=== PATIENT | male | born 1935 | race Caucasian/White ===

== ENCOUNTER 2023-05-16 11:00 | Inpatient (IN) | payer MEDICARE, OTHER ==
[2023-05-16] MEDS ORDERED: Sodium Chloride 0.9% 10 ML Syringe FLUSH PRN (11:01)
[2023-05-16] MEDS ORDERED: Albuterol 0.083% 2.5 MG/3 ML Neb Soln NEB ONE (11:03)
[2023-05-16 11:21] LABS: BASOPHILS PERCENT AUTO 0.3 % (0.0-1.0); HEMATOCRIT 46.8 % (40.0-54.0); HEMOGLOBIN 15.8 g/dL (14.0-18.0); LYMPHOCYTES PERCENT AUTO 17.3 % (20.5-50.1); MEAN CORPUSCULAR HEMOGLOBIN 33.6 pg (27.0-34.0); MEAN CORPUSCULAR HGB CONC 33.8 g/dL (33.0-35.0); MEAN CORPUSCULAR VOLUME 99.6 fL (80-100); MONOCYTES PERCENT AUTO 17.5 % (2-8); NEUTROPHILS PERCENT AUTO 64.9 % (42.2-75.2); PLATELET COUNT,PLT 151 10^3/uL (150-450); WHITE BLOOD CELL COUNT,WBC 9.6 10^3/uL (5.0-10.0)
[2023-05-16] MEDS ORDERED: Sodium Chloride 0.9% 500 ML IV ONE (11:23)
[2023-05-16 11:39] LABS: APPEARANCE,URINE CLEAR (CLEAR); BILIRUBIN,URINE NEGATIVE (NEGATIVE); COLOR,URINE YELLOW (YELLOW); GLUCOSE,URINE NEGATIVE (NEGATIVE); KETONES,URINE NEGATIVE (NEGATIVE); LEUKOCYTE ESTERASE,URINE NEGATIVE (NEGATIVE); NITRITE,URINE NEGATIVE (NEGATIVE); OCCULT BLOOD,URINE TRACE-INTACT (NEGATIVE); PH,URINE 7.5 (5.0-9.0); PROTEIN,URINE NEGATIVE (NEGATIVE); UROBILINOGEN,URINE 0.2 mg/dL (0.2-1.0)
[2023-05-16 11:41] LABS: A/G RATIO 0.8; ALBUMIN 3.3 g/dL (3.4-5.0); ANION GAP 11.2 mEq/L (7-13); BILIRUBIN TOTAL 0.6 mg/dL (0.2-1.0); BUN/CREATININE RATIO 14.1 (No establ ref range); C-REACTIVE PROTEIN 3.89 ng/dL (<=0.30); CALCIUM 8.3 mg/dL (8.5-10.1); CREATININE 1.28 mg/dL (0.70-1.30); EST CRCL DRUG DOSING (CG) 44.63 mL/min; MAGNESIUM 1.9 mg/dL (1.8-2.4); POTASSIUM,K 4.2 mmol/L (3.5-5.1); PROTEIN TOTAL,TP 7.4 g/dL (6.4-8.2)
[2023-05-16 11:44] LABS: LACTIC ACID 1.3 mmol/L (0.4-2.0)
[2023-05-16 11:51] LABS: BACTERIA,URINE OCCASIONAL /HPF (0-FEW/HPF); EPITHELIAL CELLS,URINE FEW /HPF (NOT SEEN); WBC,URINE NOT SEEN /HPF (0-5/HPF)
[2023-05-16 12:14] LABS: INFLUENZA A NAA NEGATIVE (NEGATIVE); INFLUENZA B NAA NEGATIVE (NEGATIVE)
[2023-05-16 12:32] LABS: CORONAVIRUS COVID-19 NAA POSITIVE (NEGATIVE)
[2023-05-16] MEDS ORDERED: Ondansetron 4 MG Tab.DIS PO PRN (13:22)
[2023-05-16] MEDS ORDERED: Bisacodyl 5 MG Tab PO PRN (13:22)
[2023-05-16] MEDS ORDERED: Acetaminophen 325 MG Tab PO PRN (13:22)
[2023-05-16] MEDS ORDERED: Docusate Sodium 100 MG Cap PO PRN (13:22)
[2023-05-16] MEDS ORDERED: Pneumococcal Polyvalent-23 Vaccine 0.5 ML SDV IM ONE (14:44)
[2023-05-16] MEDS ORDERED: Pneumococcal 20-Valent Conjug 0.5 ML Syringe IM ONE (15:45)
[2023-05-17 06:36] LABS: HEMATOCRIT 42.1 % (40.0-54.0); HEMOGLOBIN 14.2 g/dL (14.0-18.0); MEAN CORPUSCULAR HEMOGLOBIN 33.8 pg (27.0-34.0); MEAN CORPUSCULAR HGB CONC 33.7 g/dL (33.0-35.0); MEAN CORPUSCULAR VOLUME 100.2 fL (80-100); PLATELET COUNT,PLT 130 10^3/uL (150-450); WHITE BLOOD CELL COUNT,WBC 7.5 10^3/uL (5.0-10.0)
[2023-05-17 06:40] LABS: BASOPHILS PERCENT AUTO 0.3 % (0.0-1.0); EOSINOPHILS PERCENT AUTO 0.1 % (1.0-3.0); LYMPHOCYTES PERCENT AUTO 24.1 % (20.5-50.1); MONOCYTES PERCENT AUTO 20.4 % (2-8); NEUTROPHILS PERCENT AUTO 55.1 % (42.2-75.2)
[2023-05-17 06:50] LABS: ANION GAP 13.2 mEq/L (7-13); CALCIUM 7.7 mg/dL (8.5-10.1); CREATININE 1.16 mg/dL (0.70-1.30); EOSINOPHILS PERCENT MAN 1 % (1-3); EST CRCL DRUG DOSING (CG) 50.7 mL/min; LYMPHOCYTES PERCENT MAN 19 % (20-50); MONOCYTES PERCENT MAN 16 % (2-8); POTASSIUM,K 4.2 mmol/L (3.5-5.1); SEG NEUTROPHILS PERCENT MAN 64 % (42-75)
[2023-05-17] MEDS ORDERED: [UNRECOGNIZED DRUG - REMARK] IM SCH (09:00)
[2023-05-17] MEDS ORDERED: Enoxaparin 40 MG/0.4 ML Syringe SUBCUT SCH (09:00)
[2023-05-17] MEDS: Rivaroxaban 10 MG Tab PO SCH (17:31)
[2023-05-18] MEDS ORDERED: Nystatin Topical Powder 30 GM Bottle TOP PRN (14:18)
[2023-05-18] MEDS: Rivaroxaban 10 MG Tab PO SCH (17:28)
[2023-05-19] MEDS ORDERED: Loperamide 2 MG Cap PO PRN (17:47)
[2023-05-19] MEDS: Rivaroxaban 10 MG Tab PO SCH (18:17)
[2023-05-19] MEDS ORDERED: amLODIPine 5 MG Tab PO SCH (22:00)
[2023-05-20 07:01] LABS: ANION GAP 9.6 mEq/L (7-13); CALCIUM 8.1 mg/dL (8.5-10.1); CREATININE 0.99 mg/dL (0.70-1.30); EST CRCL DRUG DOSING (CG) 59.41 mL/min; POTASSIUM,K 3.6 mmol/L (3.5-5.1)
[2023-05-20 07:07] LABS: BASOPHILS PERCENT AUTO 0.5 % (0.0-1.0); EOSINOPHILS PERCENT AUTO 1.6 % (1.0-3.0); HEMOGLOBIN 15.7 g/dL (14.0-18.0); LYMPHOCYTES PERCENT AUTO 39.5 % (20.5-50.1); MEAN CORPUSCULAR HEMOGLOBIN 33.4 pg (27.0-34.0); MEAN CORPUSCULAR HGB CONC 33.4 g/dL (33.0-35.0); MONOCYTES PERCENT AUTO 13.2 % (2-8); NEUTROPHILS PERCENT AUTO 45.2 % (42.2-75.2); PLATELET COUNT,PLT 131 10^3/uL (150-450); WHITE BLOOD CELL COUNT,WBC 6.2 10^3/uL (5.0-10.0)
[2023-05-20] MEDS ORDERED: Potassium Chloride 10 MEQ Tab.ER PO ONE (08:23)
[2023-05-20] MEDS: Rivaroxaban 10 MG Tab PO SCH (18:00)
== END 2023-05-21 10:02 | DRG 178 ==
LOC: DL.ED 11:00 → DL.MS 12:48 → DL.ED 12:54 → DL.MS 13:12 → UNDOADMIN 13:12
PROVIDERS: ADMIT Internal Medicine; ATTEND Internal Medicine
DX: U07.1 COVID-19 (principal); E86.0 Dehydration; I48.19 Other persistent atrial fibrillation; N18.30 Chronic kidney disease, stage 3 unspecified; D75.89 Other specified diseases of blood and blood-forming organs; N18.9 Chronic kidney disease, unspecified; F03.90 Unspecified dementia, unspecified severity, without behavioral disturbance, psychotic disturbance, mood disturbance, and anxiety; Z79.01 Long term (current) use of anticoagulants; Z79.899 Other long term (current) drug therapy
CPT/HCPCS: 0240U; 36415; 70450; 71045; 80048; 80053; 81001; 82140; 82607; 82947; 83605; 83735; 83880; 85025; 86140; 87040; 94640; 97116; 97161; 97165; 97530; 99223; 99232; 99238; 99284; 99285; A9270-GY; C1758; J3490; J7040; J7613-GY

== ENCOUNTER 2023-05-21 09:23 | Inpatient (IN) | payer MEDICARE, OTHER ==
[2023-05-21] MEDS ORDERED: Nystatin Topical Powder 30 GM Bottle TOP PRN (09:30)
[2023-05-21] MEDS ORDERED: Sodium Chloride 0.9% 10 ML Syringe FLUSH PRN ×2 (09:30)
[2023-05-21] MEDS ORDERED: Bisacodyl 5 MG Tab PO PRN (09:30)
[2023-05-21] MEDS ORDERED: Ondansetron 4 MG Tab.DIS PO PRN (09:30)
[2023-05-21] MEDS ORDERED: Docusate Sodium 100 MG Cap PO PRN (09:30)
[2023-05-21] MEDS ORDERED: Loperamide 2 MG Cap PO PRN (09:30)
[2023-05-21] MEDS: Rivaroxaban 10 MG Tab PO SCH (17:53)
[2023-05-21] MEDS: Acetaminophen 325 MG Tab PO PRN (20:55)
[2023-05-21] MEDS: Sodium Chloride 0.9% 10 ML Syringe FLUSH SCH (23:39)
[2023-05-22 06:47] LABS: HEMOGLOBIN 14.7 g/dL (14.0-18.0); MEAN CORPUSCULAR HGB CONC 33.4 g/dL (33.0-35.0); MEAN CORPUSCULAR VOLUME 98.7 fL (80-100); PLATELET COUNT,PLT 145 10^3/uL (150-450); RED BLOOD CELL COUNT 4.46 10^6/uL (4.6-6.2); WHITE BLOOD CELL COUNT,WBC 6.3 10^3/uL (5.0-10.0)
[2023-05-22 06:58] LABS: ANION GAP 13.9 mEq/L (7-13); BASOPHILS PERCENT AUTO 0.3 % (0.0-1.0); CALCIUM 8.4 mg/dL (8.5-10.1); CREATININE 0.98 mg/dL (0.70-1.30); EOSINOPHILS PERCENT AUTO 1.9 % (1.0-3.0); EST CRCL DRUG DOSING (CG) 60.02 mL/min; LYMPHOCYTES PERCENT AUTO 36.8 % (20.5-50.1); MONOCYTES PERCENT AUTO 11.5 % (2-8); NEUTROPHILS PERCENT AUTO 49.5 % (42.2-75.2); POTASSIUM,K 3.9 mmol/L (3.5-5.1)
[2023-05-22 07:17] LABS: BAND PERCENT MAN 4 %; EOSINOPHILS PERCENT MAN 2 % (1-3); LYMPHOCYTES PERCENT MAN 34 % (20-50); MONOCYTES PERCENT MAN 10 % (2-8); SEG NEUTROPHILS PERCENT MAN 50 % (42-75)
[2023-05-22] MEDS: Sodium Chloride 0.9% 10 ML Syringe FLUSH SCH ×2 (08:38→23:31)
[2023-05-22] MEDS: Rivaroxaban 10 MG Tab PO SCH (21:16)
[2023-05-22] MEDS: Acetaminophen 325 MG Tab PO PRN (21:16)
[2023-05-23] MEDS: Sodium Chloride 0.9% 10 ML Syringe FLUSH SCH ×3 (09:28→23:19)
[2023-05-23] MEDS: Rivaroxaban 10 MG Tab PO SCH (17:43)
[2023-05-24] MEDS: Sodium Chloride 0.9% 10 ML Syringe FLUSH SCH (08:51)
[2023-05-24] MEDS: Rivaroxaban 10 MG Tab PO SCH (17:03)
[2023-05-25] MEDS: Rivaroxaban 10 MG Tab PO SCH (17:44)
[2023-05-26] MEDS ORDERED: FLU (Fluad Quad) 2023-24(65UP)/MF59C/PF 60 MCG/0.5 ML Syringe IM ONE (09:15)
[2023-05-26] MEDS ORDERED: Furosemide 40 MG Tab PO ONE (11:35)
[2023-05-26] MEDS: Rivaroxaban 10 MG Tab PO SCH (17:23)
== END 2023-05-27 10:20 | disposition home or self-care (01) | DRG 948 ==
LOC: DL.MS 09:32
PROVIDERS: ADMIT Internal Medicine; ATTEND Internal Medicine
DX: R53.1 Weakness (principal); I48.19 Other persistent atrial fibrillation; R53.81 Other malaise; U09.9 Post COVID-19 condition, unspecified; I12.9 Hypertensive chronic kidney disease with stage 1 through stage 4 chronic kidney disease, or unspecified chronic kidney disease; N18.30 Chronic kidney disease, stage 3 unspecified; F03.90 Unspecified dementia, unspecified severity, without behavioral disturbance, psychotic disturbance, mood disturbance, and anxiety; D75.89 Other specified diseases of blood and blood-forming organs; R60.0 Localized edema; Z79.01 Long term (current) use of anticoagulants
CPT/HCPCS: 36415; 80048; 85025; 97116-GP; 97161-GP; 97165-GO; 97530-GO; 97530-GP; 97535-GO; 99306; 99309; 99315; A9270-GY

== ENCOUNTER 2024-11-08 08:27 | Inpatient (IN) | payer MEDICARE, OTHER ==
[2024-11-08 09:08] LABS: BASOPHILS PERCENT AUTO 0.1 % (0.0-1.0); EOSINOPHILS PERCENT AUTO 0.1 % (1.0-3.0); HEMATOCRIT 48.9 % (40.0-54.0); HEMOGLOBIN 16.1 g/dL (14.0-18.0); LYMPHOCYTES PERCENT AUTO 9.1 % (20.5-50.1); MEAN CORPUSCULAR HGB CONC 32.9 g/dL (33.0-35.0); MEAN CORPUSCULAR VOLUME 100.2 fL (80-100); MONOCYTES PERCENT AUTO 4.6 % (2-8); NEUTROPHILS PERCENT AUTO 86.1 % (42.2-75.2); PLATELET COUNT,PLT 179 10^3/uL (150-450); RED BLOOD CELL COUNT 4.88 10^6/uL (4.6-6.2); WHITE BLOOD CELL COUNT,WBC 12.5 10^3/uL (5.0-10.0)
[2024-11-08 09:28] LABS: ALANINE AMINOTRANSFERASE,ALT 19 U/L (16-63); ALBUMIN 3.3 g/dL (3.4-5.0); ALKALINE PHOSPHATASE 112 U/L (46-116); ANION GAP 13.2 mEq/L (7-13); ASPARTATE AMNIOTRANSFERASE,AST 23 U/L (15-37); BILIRUBIN TOTAL 0.7 mg/dL (0.2-1.0); BLOOD UREA NITROGEN,BUN 28 mg/dL (7-18); BUN/CREATININE RATIO 17.2 (No establ ref range); C-REACTIVE PROTEIN 1.93 ng/dL (<=0.50); CALCIUM 8.8 mg/dL (8.5-10.1); CARBON DIOXIDE,CO2 26 mmol/L (21-32); CHLORIDE,CL 105 mmol/L (98-107); CREATININE 1.63 mg/dL (0.70-1.30); GLUCOSE RANDOM 141 mg/dL (70-99); MAGNESIUM 1.9 mg/dL (1.8-2.4); POTASSIUM,K 4.2 mmol/L (3.5-5.1); PROTEIN TOTAL,TP 7.6 g/dL (6.4-8.2); SODIUM,NA 140 mmol/L (136-145)
[2024-11-08 09:29] LABS: A/G RATIO 0.77; ESTIMATED GFR 40 mL/min (>=60)
[2024-11-08] MEDS: Sodium Chloride 0.9% 1,000 ML IV ONE (09:31)
[2024-11-08] MEDS: Ondansetron 4 MG/2 ML SDV IVPUSH ONE (09:31)
[2024-11-08 09:34] LABS: LACTIC ACID 4.3 mmol/L (0.4-2.0)
[2024-11-08] MEDS ORDERED: Acetaminophen 325 MG Tab PO PRN (12:47)
[2024-11-08] MEDS ORDERED: Albuterol/Ipratropium 3.0-0.5 MG/3 ML Neb Soln NEB PRN (12:47)
[2024-11-08] MEDS ORDERED: Ondansetron 4 MG/2 ML SDV IVPUSH PRN (12:47)
[2024-11-08 13:58] LABS: INR 1.1 (0.9-1.2); PROTHROMBIN TIME 11.3 SEC (9.0-12.0); PTT,PARTIAL THROMBOPLSTIN TIME 25.3 SEC (22.0-34.0)
[2024-11-08 14:04] LABS: FOLIC ACID 19.7 ng/mL (8.6-58.9)
[2024-11-08] MEDS: Sodium Chloride 0.9% 1,000 ML IV SCH (15:59)
[2024-11-08] MEDS: Rivaroxaban 10 MG Tab PO SCH (19:36)
[2024-11-09 03:33] LABS: APPEARANCE,URINE CLEAR (CLEAR); BILIRUBIN,URINE NEGATIVE (NEGATIVE); COLOR,URINE DARK YELLOW (YELLOW); GLUCOSE,URINE NEGATIVE (NEGATIVE); KETONES,URINE NEGATIVE (NEGATIVE); LEUKOCYTE ESTERASE,URINE NEGATIVE (NEGATIVE); NITRITE,URINE NEGATIVE (NEGATIVE); OCCULT BLOOD,URINE NEGATIVE (NEGATIVE); PH,URINE 5.5 (5.0-9.0); PROTEIN,URINE NEGATIVE (NEGATIVE); UROBILINOGEN,URINE 0.2 mg/dL (0.2-1.0)
[2024-11-09] MEDS: Pantoprazole 40 MG Tab.CR PO SCH (05:14)
[2024-11-09 06:13] LABS: BASOPHILS PERCENT AUTO 0.1 % (0.0-1.0); EOSINOPHILS PERCENT AUTO 0.6 % (1.0-3.0); HEMATOCRIT 43.6 % (40.0-54.0); HEMOGLOBIN 14.1 g/dL (14.0-18.0); MEAN CORPUSCULAR HEMOGLOBIN 33.1 pg (27.0-34.0); MEAN CORPUSCULAR HGB CONC 32.3 g/dL (33.0-35.0); MEAN CORPUSCULAR VOLUME 102.3 fL (80-100); MONOCYTES PERCENT AUTO 15.3 % (2-8); PLATELET COUNT,PLT 165 10^3/uL (150-450); RED BLOOD CELL COUNT 4.26 10^6/uL (4.6-6.2); WHITE BLOOD CELL COUNT,WBC 7.2 10^3/uL (5.0-10.0)
[2024-11-09 06:39] LABS: ALBUMIN 2.7 g/dL (3.4-5.0); ANION GAP 9.1 mEq/L (7-13); BILIRUBIN TOTAL 0.4 mg/dL (0.2-1.0); BUN/CREATININE RATIO 22.7 (No establ ref range); CALCIUM 7.9 mg/dL (8.5-10.1); CREATININE 1.19 mg/dL (0.70-1.30); EST CRCL DRUG DOSING (CG) 48.49 mL/min; MAGNESIUM 1.9 mg/dL (1.8-2.4); POTASSIUM,K 4.1 mmol/L (3.5-5.1); PROTEIN TOTAL,TP 6.2 g/dL (6.4-8.2)
[2024-11-09 06:43] LABS: A/G RATIO 0.77
[2024-11-09] MEDS: D5 1/2 NS w/ 20 mEq/L KCl 1,000 ML IV SCH (15:21)
[2024-11-10 06:28] LABS: BASOPHILS PERCENT AUTO 0.1 % (0.0-1.0); EOSINOPHILS PERCENT AUTO 4.2 % (1.0-3.0); HEMATOCRIT 40.3 % (40.0-54.0); MEAN CORPUSCULAR HEMOGLOBIN 33.4 pg (27.0-34.0); MEAN CORPUSCULAR HGB CONC 32.3 g/dL (33.0-35.0); MEAN CORPUSCULAR VOLUME 103.6 fL (80-100); MONOCYTES PERCENT AUTO 14.2 % (2-8); NEUTROPHILS PERCENT AUTO 46.5 % (42.2-75.2); PLATELET COUNT,PLT 145 10^3/uL (150-450); RED BLOOD CELL COUNT 3.89 10^6/uL (4.6-6.2); WHITE BLOOD CELL COUNT,WBC 7.2 10^3/uL (5.0-10.0)
[2024-11-10 06:52] LABS: LACTIC ACID 1.2 mmol/L (0.4-2.0)
[2024-11-10 06:59] LABS: A/G RATIO 0.72; ALBUMIN 2.3 g/dL (3.4-5.0); ANION GAP 10.2 mEq/L (7-13); BILIRUBIN TOTAL 0.3 mg/dL (0.2-1.0); BUN/CREATININE RATIO 17.9 (No establ ref range); CALCIUM 7.4 mg/dL (8.5-10.1); CREATININE 1.12 mg/dL (0.70-1.30); EST CRCL DRUG DOSING (CG) 51.52 mL/min; MAGNESIUM 1.8 mg/dL (1.8-2.4); POTASSIUM,K 4.2 mmol/L (3.5-5.1); PROTEIN TOTAL,TP 5.5 g/dL (6.4-8.2)
[2024-11-10 11:06] LABS: PERCENT FE SATURATION 30.6 % (20.0-50.0)
[2024-11-10 11:33] LABS: FOLIC ACID 17.1 ng/mL (8.6-58.9)
[2024-11-10] MEDS: VANCOmycin 125 MG Cap PO SCH (12:54)
[2024-11-10] MEDS: Nystatin Topical Powder 60 GM Bottle TOP SCH (12:54)
[2024-11-10] MEDS: Rivaroxaban 10 MG Tab PO SCH (17:09)
[2024-11-10] MEDS: Melatonin 3 MG Tab PO PRN (20:40)
[2024-11-10] MEDS: Sodium Chloride 0.9% 10 ML Syringe FLUSH PRN (20:42)
[2024-11-11 06:26] LABS: BASOPHILS PERCENT AUTO 0.1 % (0.0-1.0); EOSINOPHILS PERCENT AUTO 1.2 % (1.0-3.0); HEMATOCRIT 44.2 % (40.0-54.0); LYMPHOCYTES PERCENT AUTO 23.3 % (20.5-50.1); MEAN CORPUSCULAR HEMOGLOBIN 33.8 pg (27.0-34.0); MEAN CORPUSCULAR HGB CONC 33.9 g/dL (33.0-35.0); MEAN CORPUSCULAR VOLUME 99.5 fL (80-100); MONOCYTES PERCENT AUTO 12.6 % (2-8); NEUTROPHILS PERCENT AUTO 62.8 % (42.2-75.2); PLATELET COUNT,PLT 168 10^3/uL (150-450); RED BLOOD CELL COUNT 4.44 10^6/uL (4.6-6.2); WHITE BLOOD CELL COUNT,WBC 7.6 10^3/uL (5.0-10.0)
[2024-11-11 06:49] LABS: ALBUMIN 2.9 g/dL (3.4-5.0); ANION GAP 16.4 mEq/L (7-13); BILIRUBIN TOTAL 0.7 mg/dL (0.2-1.0); BUN/CREATININE RATIO 12.8 (No establ ref range); CALCIUM 8.2 mg/dL (8.5-10.1); CREATININE 1.25 mg/dL (0.70-1.30); EST CRCL DRUG DOSING (CG) 46.16 mL/min; MAGNESIUM 1.7 mg/dL (1.8-2.4); POTASSIUM,K 3.4 mmol/L (3.5-5.1); PROTEIN TOTAL,TP 6.8 g/dL (6.4-8.2)
[2024-11-11 06:52] LABS: A/G RATIO 0.74
[2024-11-11] MEDS: Potassium Chloride 20 MEQ in Premix Bag 1 BAG IV ONE (10:31)
[2024-11-11] MEDS: Nystatin Topical Powder 60 GM Bottle TOP SCH (13:09)
== END 2024-11-11 18:11 | disposition home or self-care (01) | DRG 871 ==
LOC: DL.ED 08:27 → DL.MS 09:37
PROVIDERS: ADMIT Internal Medicine; ATTEND Internal Medicine
DX: A41.89 Other specified sepsis (principal); G92.8 Other toxic encephalopathy; I48.91 Unspecified atrial fibrillation; Z79.01 Long term (current) use of anticoagulants; A08.39 Other viral enteritis; I48.11 Longstanding persistent atrial fibrillation; N17.9 Acute kidney failure, unspecified; E44.0 Moderate protein-calorie malnutrition; Z68.27 Body mass index [BMI] 27.0-27.9, adult; R65.20 Severe sepsis without septic shock; F03.90 Unspecified dementia, unspecified severity, without behavioral disturbance, psychotic disturbance, mood disturbance, and anxiety; H91.90 Unspecified hearing loss, unspecified ear; I12.9 Hypertensive chronic kidney disease with stage 1 through stage 4 chronic kidney disease, or unspecified chronic kidney disease; E86.0 Dehydration; N18.30 Chronic kidney disease, stage 3 unspecified; E88.09 Other disorders of plasma-protein metabolism, not elsewhere classified; E87.6 Hypokalemia; D50.9 Iron deficiency anemia, unspecified; Z79.899 Other long term (current) drug therapy
CPT/HCPCS: 36415; 80053; 83605; 83735; 85025; 86140; 87428; 96374; 99284; 99285; J2405; J7030; 81003; 82607; 82746; 83540; 83550; 83880; 84145; 85610; 85651; 85730; 87493; 97110-GO; 97161-GP; 97165-GO; 97530-GP; 99223; 99233; 99239; A9270-GY; J1756; J3480; J3490

== ENCOUNTER 2024-11-17 15:16 | Observation (INO) | payer MEDICARE, OTHER ==
[2024-11-17] MEDS ORDERED: Sodium Chloride 0.9% 10 ML Syringe FLUSH PRN (15:45)
[2024-11-17 16:27] LABS: HEMATOCRIT 45.1 % (40.0-54.0); HEMOGLOBIN 14.8 g/dL (14.0-18.0); MEAN CORPUSCULAR HEMOGLOBIN 33.2 pg (27.0-34.0); MEAN CORPUSCULAR HGB CONC 32.8 g/dL (33.0-35.0); MEAN CORPUSCULAR VOLUME 101.1 fL (80-100); PLATELET COUNT,PLT 161 10^3/uL (150-450); RED BLOOD CELL COUNT 4.46 10^6/uL (4.6-6.2); WHITE BLOOD CELL COUNT,WBC 8.4 10^3/uL (5.0-10.0)
[2024-11-17 16:29] LABS: BASOPHILS PERCENT AUTO 0.2 % (0.0-1.0); EOSINOPHILS PERCENT AUTO 1.9 % (1.0-3.0); LYMPHOCYTES PERCENT AUTO 24.4 % (20.5-50.1); MONOCYTES PERCENT AUTO 12.3 % (2-8); NEUTROPHILS PERCENT AUTO 61.2 % (42.2-75.2)
[2024-11-17 16:48] LABS: INR 1.1 (0.9-1.2); PROTHROMBIN TIME 11.6 SEC (9.0-12.0); PTT,PARTIAL THROMBOPLSTIN TIME 27.6 SEC (22.0-34.0)
[2024-11-17 16:52] LABS: ALBUMIN 2.8 g/dL (3.4-5.0); ANION GAP 14.1 mEq/L (7-13); BILIRUBIN TOTAL 0.9 mg/dL (0.2-1.0); C-REACTIVE PROTEIN 2.26 ng/dL (<=0.50); CALCIUM 8.4 mg/dL (8.5-10.1); CREATININE 1.14 mg/dL (0.70-1.30); EST CRCL DRUG DOSING (CG) 51.73 mL/min; MAGNESIUM 1.9 mg/dL (1.8-2.4); POTASSIUM,K 4.1 mmol/L (3.5-5.1)
[2024-11-17 16:53] LABS: LACTIC ACID 1.2 mmol/L (0.4-2.0)
[2024-11-17 16:57] LABS: A/G RATIO 0.67
[2024-11-17 17:38] LABS: EOSINOPHILS PERCENT MAN 3 % (1-3); LYMPHOCYTES PERCENT MAN 27 % (20-50); MONOCYTES PERCENT MAN 10 % (2-8); SEG NEUTROPHILS PERCENT MAN 60 % (42-75)
[2024-11-17] MEDS ORDERED: Docusate Sodium 100 MG Cap PO PRN (18:45)
[2024-11-17] MEDS ORDERED: Acetaminophen 325 MG Tab PO PRN (18:45)
[2024-11-18] MEDS: Potassium Chloride 10 MEQ Tab.ER PO SCH (08:41)
[2024-11-18] MEDS: amLODIPine 5 MG Tab PO SCH (08:41)
[2024-11-18] MEDS: Rivaroxaban 10 MG Tab PO SCH (08:41)
[2024-11-18] MEDS: Ferrous Sulfate 325 MG Tab PO SCH (08:41)
== END 2024-11-19 09:45 ==
LOC: DL.ED 15:16 → DL.MS 17:02
PROVIDERS: ADMIT Internal Medicine; ATTEND Internal Medicine
DX: R53.1 Weakness (principal); F03.90 Unspecified dementia, unspecified severity, without behavioral disturbance, psychotic disturbance, mood disturbance, and anxiety; R53.81 Other malaise; I12.9 Hypertensive chronic kidney disease with stage 1 through stage 4 chronic kidney disease, or unspecified chronic kidney disease; N18.9 Chronic kidney disease, unspecified; I48.19 Other persistent atrial fibrillation; E87.6 Hypokalemia; D50.9 Iron deficiency anemia, unspecified; E46 Unspecified protein-calorie malnutrition; Z79.01 Long term (current) use of anticoagulants; Z79.899 Other long term (current) drug therapy
CPT/HCPCS: 36415; 71045; 80053; 83605; 83735; 83880; 84484; 85025; 85610; 85730; 86140; 87040; 93005; 97161; 97165; 99223; 99233; 99239; A9270

== ENCOUNTER 2025-02-16 04:38 | Emergency (ER) | payer MEDICARE, OTHER ==
[2025-02-16 05:28] LABS: APPEARANCE,URINE TURBID (CLEAR); GLUCOSE,URINE NEGATIVE (NEGATIVE); OCCULT BLOOD,URINE LARGE (NEGATIVE)
[2025-02-16] MEDS ORDERED: Sodium Chloride 0.9% 10 ML Syringe FLUSH PRN (05:53)
[2025-02-16 06:25] LABS: PLATELET COUNT,PLT 198 10^3/uL (150-450); RED BLOOD CELL COUNT 4.29 10^6/uL (4.6-6.2); WHITE BLOOD CELL COUNT,WBC 13.6 10^3/uL (5.0-10.0)
[2025-02-16 06:31] LABS: EPITHELIAL CELLS,URINE FEW /HPF (NOT SEEN)
[2025-02-16 06:45] LABS: ALANINE AMINOTRANSFERASE,ALT 16 U/L (16-63); ASPARTATE AMNIOTRANSFERASE,AST 16 U/L (15-37); BILIRUBIN TOTAL 0.4 mg/dL (0.2-1.0); BLOOD UREA NITROGEN,BUN 19 mg/dL (7-18); CARBON DIOXIDE,CO2 25 mmol/L (21-32); CHLORIDE,CL 105 mmol/L (98-107); CREATININE 1.18 mg/dL (0.70-1.30); GLUCOSE RANDOM 117 mg/dL (70-99); POTASSIUM,K 4.5 mmol/L (3.5-5.1); PROTEIN TOTAL,TP 7.3 g/dL (6.4-8.2); SODIUM,NA 137 mmol/L (136-145)
[2025-02-16 06:48] LABS: LACTIC ACID 1.6 mmol/L (0.4-2.0)
[2025-02-16 06:52] LABS: A/G RATIO 0.66; ESTIMATED GFR 59 mL/min (>=60)
[2025-02-16 06:59] LABS: BASOPHILS PERCENT AUTO 0.2 % (0.0-1.0); EOSINOPHILS PERCENT AUTO 0.2 % (1.0-3.0); LYMPHOCYTES PERCENT AUTO 12.1 % (20.5-50.1); MONOCYTES PERCENT AUTO 10.7 % (2-8); NEUTROPHILS PERCENT AUTO 76.8 % (42.2-75.2)
[2025-02-16 07:38] LABS: BAND PERCENT MAN 6 %; LYMPHOCYTES PERCENT MAN 12 % (20-50); MONOCYTES PERCENT MAN 7 % (2-8); SEG NEUTROPHILS PERCENT MAN 75 % (42-75)
== END 2025-02-16 08:57 | disposition home or self-care (01) ==
LOC: DL.ED 04:38
DX: N39.0 Urinary tract infection, site not specified (principal); I48.91 Unspecified atrial fibrillation; Z79.01 Long term (current) use of anticoagulants; Z79.899 Other long term (current) drug therapy; Z86.16 Personal history of COVID-19
CPT/HCPCS: 36415; 80053; 81001; 83605; 84145; 85025; 87040; 87086; 96374; 99283; J0696; 99284

== ENCOUNTER 2025-03-23 09:04 | Inpatient (IN) | payer MEDICARE, OTHER ==
[2025-03-23 14:33] LABS: PLATELET COUNT,PLT 238 10^3/uL (150-450); RED BLOOD CELL COUNT 4.69 10^6/uL (4.6-6.2); WHITE BLOOD CELL COUNT,WBC 12.5 10^3/uL (5.0-10.0)
[2025-03-23 14:36] LABS: BASOPHILS PERCENT AUTO 0.3 % (0.0-1.0); EOSINOPHILS PERCENT AUTO 0.6 % (1.0-3.0); LYMPHOCYTES PERCENT AUTO 23.4 % (20.5-50.1); MONOCYTES PERCENT AUTO 9.9 % (2-8); NEUTROPHILS PERCENT AUTO 65.8 % (42.2-75.2)
[2025-03-23 14:52] LABS: BLOOD UREA NITROGEN,BUN 31.0 mg/dL (7-18); CARBON DIOXIDE,CO2 32.0 mmol/L (21-32); CHLORIDE,CL 97.0 mmol/L (98-107); CREATININE 1.26 mg/dL (0.70-1.30); EST CRCL DRUG DOSING (CG) 44.92 mL/min; GLUCOSE RANDOM 177.0 mg/dL (70-99); POTASSIUM,K 3.6 mmol/L (3.5-5.1); SODIUM,NA 135.0 mmol/L (136-145)
[2025-03-23 14:53] LABS: ESTIMATED GFR 55.0 mL/min (>=60)
[2025-03-23] MEDS: Meropenem 1 GM SDV IVPUSH SCH (15:01)
[2025-03-23 15:04] LABS: BAND PERCENT MAN 2 %; EOSINOPHILS PERCENT MAN 1 % (1-3); LYMPHOCYTES PERCENT MAN 19 % (20-50); MONOCYTES PERCENT MAN 8 % (2-8); SEG NEUTROPHILS PERCENT MAN 70 % (42-75)
[2025-03-23] MEDS: Sodium Chloride 0.9% 10 ML Syringe IV PRN (22:13)
[2025-03-24] MEDS: Potassium Chloride 10 MEQ Tab.ER PO SCH (08:42)
[2025-03-28 08:00] LABS: BASOPHILS PERCENT AUTO 0.4 % (0.0-1.0); EOSINOPHILS PERCENT AUTO 1.9 % (1.0-3.0); LYMPHOCYTES PERCENT AUTO 33.4 % (20.5-50.1); MONOCYTES PERCENT AUTO 13.0 % (2-8); NEUTROPHILS PERCENT AUTO 51.3 % (42.2-75.2); PLATELET COUNT,PLT 208 10^3/uL (150-450); RED BLOOD CELL COUNT 4.26 10^6/uL (4.6-6.2); WHITE BLOOD CELL COUNT,WBC 8.0 10^3/uL (5.0-10.0)
[2025-03-28 08:14] LABS: BLOOD UREA NITROGEN,BUN 41.0 mg/dL (7-18); CARBON DIOXIDE,CO2 27.0 mmol/L (21-32); CHLORIDE,CL 108.0 mmol/L (98-107); CREATININE 1.06 mg/dL (0.70-1.30); EST CRCL DRUG DOSING (CG) 53.39 mL/min; GLUCOSE RANDOM 94.0 mg/dL (70-99); SODIUM,NA 139.0 mmol/L (136-145)
[2025-03-28 08:19] LABS: ESTIMATED GFR 67.0 mL/min (>=60); POTASSIUM,K 5.6 mmol/L (3.5-5.1)
[2025-03-28 14:23] LABS: FOLIC ACID 17.2 ng/mL (8.6-58.9); POTASSIUM,K 4.6 mmol/L (3.5-5.1)
[2025-04-01 07:31] LABS: BASOPHILS PERCENT AUTO 0.4 % (0.0-1.0); EOSINOPHILS PERCENT AUTO 3.2 % (1.0-3.0); LYMPHOCYTES PERCENT AUTO 35.6 % (20.5-50.1); MONOCYTES PERCENT AUTO 13.2 % (2-8); NEUTROPHILS PERCENT AUTO 47.6 % (42.2-75.2); PLATELET COUNT,PLT 190 10^3/uL (150-450); RED BLOOD CELL COUNT 4.00 10^6/uL (4.6-6.2); WHITE BLOOD CELL COUNT,WBC 7.2 10^3/uL (5.0-10.0)
[2025-04-01 07:52] LABS: ALANINE AMINOTRANSFERASE,ALT 26 U/L (16-63); ASPARTATE AMNIOTRANSFERASE,AST 24 U/L (15-37); BILIRUBIN TOTAL 0.3 mg/dL (0.2-1.0); BLOOD UREA NITROGEN,BUN 32 mg/dL (7-18); CARBON DIOXIDE,CO2 27 mmol/L (21-32); CHLORIDE,CL 106 mmol/L (98-107); CREATININE 1.17 mg/dL (0.70-1.30); EST CRCL DRUG DOSING (CG) 48.37 mL/min; GLUCOSE RANDOM 84 mg/dL (70-99); POTASSIUM,K 5.0 mmol/L (3.5-5.1); PROTEIN TOTAL,TP 6.2 g/dL (6.4-8.2); SODIUM,NA 137 mmol/L (136-145)
[2025-04-01 07:53] LABS: A/G RATIO 0.59; ESTIMATED GFR 60 mL/min (>=60)
[2025-04-01 08:10] LABS: SEDIMENTATION RATE MANUAL 13 mm/hr (0-15)
== END 2025-04-01 15:30 | disposition home or self-care (01) | DRG 603 ==
LOC: DL.MS 13:00
PROVIDERS: ADMIT Internal Medicine; ATTEND Student in an Organized Health Care Education/Training Program
DX: L03.115 Cellulitis of right lower limb (principal); L97.819 Non-pressure chronic ulcer of other part of right lower leg with unspecified severity; Z66 Do not resuscitate; N18.30 Chronic kidney disease, stage 3 unspecified; I48.91 Unspecified atrial fibrillation; F03.90 Unspecified dementia, unspecified severity, without behavioral disturbance, psychotic disturbance, mood disturbance, and anxiety; R33.9 Retention of urine, unspecified; H91.90 Unspecified hearing loss, unspecified ear; I10 Essential (primary) hypertension; K52.9 Noninfective gastroenteritis and colitis, unspecified; I87.2 Venous insufficiency (chronic) (peripheral); D75.89 Other specified diseases of blood and blood-forming organs; Z97.8 Presence of other specified devices; Z79.01 Long term (current) use of anticoagulants; Z79.899 Other long term (current) drug therapy; Z86.16 Personal history of COVID-19
CPT/HCPCS: 36415; 80048; 80053; 82607; 82746; 83735; 84132; 85025; 85651; 86140; 99211; 99306; 99310; 99315; A9270-GY; J2185